=== PATIENT | male | born 1935 | race Caucasian/White ===

== ENCOUNTER 2018-02-17 05:58 | Emergency (ER) | payer MEDICARE, BC ==
[2018-02-17 06:30] LABS: Bilirubin Negative (Negative); Blood, Urine Negative (Negative); Clarity CLEAR (Clear); Glucose, Urine (Dipstick) Negative (Negative); Leukocyte Negative (Negative); Nitrite Negative (Negative); Protein, Urine (Dipstick) Negative (Neg-Trace); Urobilinogen 0.2 mg/dL (0.2-1.0); pH, Urine 7.5 (5.0-9.0)
== END 2018-02-17 08:22 | disposition home or self-care (01) ==
LOC: ERS 05:58
DX: B02.9 Zoster without complications (principal); E11.9 Type 2 diabetes mellitus without complications; Z87.891 Personal history of nicotine dependence; Z79.84 Long term (current) use of oral hypoglycemic drugs; Z79.82 Long term (current) use of aspirin
CPT/HCPCS: 51798; 81003

== ENCOUNTER → 2018-04-14 | Day surgery (SDC) | payer MEDICARE, BC ==
[2018-04-13 10:23] VITALS: BMI 28.1
[2018-04-14 09:03] LABS: #Eosinphils 0.2 thou/uL (0.0-0.7); #Lymphocytes 1.2 thou/uL (1.20-3.40); #Monocytes 0.7 thou/uL (0.11-0.59); #Neutrophils 5.6 thou/uL (1.40-6.50); %Basophils 0.5 % (0.0-1.0); %Eosinophils 3.1 % (0.0-10.0); %Lymphocytes 15.3 % (21.0-51.0); %Neutrophils 72.1 % (42.0-75.0); Hemoglobin 14.7 g/dL (14.0-18.0); Mean Corpuscular HGB CONC 33.8 g/dL (32.0-36.0); Mean Corpuscular Hemoglobin 29.8 pg (27.0-31.0); Mean Corpuscular Volume 88.1 fL (78.0-98.0); Mean Platelet Volume 6.2 fL (7.4-10.4); Platelet Count 326 thou/uL (130-400); RBC Distribution Width 13.5 % (11.5-14.5); Red Blood Cell (RBC) Count 4.92 mill/uL (4.70-6.10); White Blood Cell (WBC) Count 7.8 thou/uL (4.8-10.8)
[2018-04-14 09:05] LABS: INR-International Normal Ratio 1.1; PTT 33.6 SEC (22.9-36.1); Prothrombin Time 14.2 SEC (12.0-14.7)
[2018-04-14 09:53] VITALS: TEMP 97.4
[2018-04-14 14:33] LABS: Hemoglobin 14.7 g/dL (14.0-18.0)
--- NOTE | 2018-04-14 15:35 | CT ---
CT GUIDED BIOPSY OF INTRAABDOMINAL MASS: Date: 04/14/18 HISTORY: 82-year-old history of renal cell carcinoma and prostate cancer, status post left nephrectomy, with m ultiple metastatic masses in the abdominal cavity and lungs demonstrated on CT of 03/25/18 from [facility]. TECHNIQUE: Signed, informed consent obtained. Patient placed supine on CT table. The mass at the lower portion o f the left psoas muscle was targeted. The overlying left lateral lower flank at the level of the left iliac wing was prepared and draped in the usual sterile fashion. A 25 gauge needle was used to apply buffered lidocaine superficially and deeply through the lateral abdominal wall musculature. In tande m with the 25 gauge needle, a 17 gauge introducer needle was advanced under step CT guidance to the l ateral edge of the mass expanding the left psoas muscle. The 25 gauge needle was removed. The stylett e from the introducer needle was removed. An 18 gauge biopsy needle was placed in coaxial fashion thr ough the introducer needle. Biopsy gun was fired, yielding core tissue sample which was smeared on a slide, which was evaluated with Touch Preparation analysis by pathologist. This was repeated with a s econd pass, and the 2nd sample was placed directly into Formalin. Introducer needle was removed. The patient tolerated the procedure well. No immediate complications. Patient was scanned 2.5 hours later . Patient was then discharged home without incident. FINDINGS: Scan immediately prior to the biopsy demonstrates an approximately 6 cm soft tissue density mass expa nding the lower portion of the left psoas muscle, anterior to the left iliacus muscle. The left renal fossa is empty of a kidney. Adrenal masses are also noted. Images obtained during biopsy demonstrate the introducer needle distal tip embedded within the periph eral aspect of the psoas mass. The 2.5 hour post biopsy scan demonstrates no hematoma or any other fr ee fluid in the retroperitoneum or pelvic cavity. The prostate gland is absent. There are multiple loyd rgical clips in the prostate bed and along the internal and external iliac chains. IMPRESSION: Technically successful 18 gauge core biopsy x 2 of the tumor mass in the inferior portion of the left psoas muscle. POS: [facility]
== END ==
LOC: CT 08:41
PROVIDERS: ATTEND Internal Medicine Hematology & Oncology
PROC: 0TB13ZX Excision of Left Kidney, Percutaneous Approach, Diagnostic (ICD-10-PCS; principal; 2018-04-14)
DX: C64.2 Malignant neoplasm of left kidney, except renal pelvis (principal); C61 Malignant neoplasm of prostate; C79.89 Secondary malignant neoplasm of other specified sites; C78.02 Secondary malignant neoplasm of left lung; C78.01 Secondary malignant neoplasm of right lung; E11.9 Type 2 diabetes mellitus without complications; G47.00 Insomnia, unspecified; Z79.84 Long term (current) use of oral hypoglycemic drugs; Z79.899 Other long term (current) drug therapy; Z87.891 Personal history of nicotine dependence
CPT/HCPCS: 36415; 49180; 50200; 77012; 85025; 85610; 85730; 88305; 88333; 99152; 99153

== ENCOUNTER 2018-06-13 07:30 | Inpatient (IN) | payer MEDICARE, BC ==
[2018-06-13 08:02] LABS: #Basophils 0.1 thou/uL (0.0-0.2); #Eosinphils 0.8 thou/uL (0.0-0.7); #Lymphocytes 1.6 thou/uL (1.20-3.40); #Neutrophils 4.2 thou/uL (1.40-6.50); %Basophils 0.7 % (0.0-1.0); %Lymphocytes 21.1 % (21.0-51.0); %Neutrophils 54.2 % (42.0-75.0); Hemoglobin 13.2 g/dL (14.0-18.0); Mean Corpuscular HGB CONC 32.3 g/dL (32.0-36.0); Mean Corpuscular Hemoglobin 28.3 pg (27.0-31.0); Mean Corpuscular Volume 87.6 fL (78.0-98.0); Mean Platelet Volume 6.9 fL (7.4-10.4); Platelet Count 264 thou/uL (130-400); RBC Distribution Width 12.3 % (11.5-14.5); Red Blood Cell (RBC) Count 4.66 mill/uL (4.70-6.10); White Blood Cell (WBC) Count 7.7 thou/uL (4.8-10.8)
[2018-06-13 08:21] LABS: ALT (SGPT) 28 U/L (8-55); AST (SGOT) 30 U/L (5-34); Albumin 3.8 g/dL (3.4-4.8); Alkaline Phosphatase 144 U/L (40-150); Anion Gap 17 mmol/L (10-20); BUN (Urea Nitrogen) 47 mg/dL (8.4-25.7); Bilirubin, Total 0.9 mg/dL (0.2-1.2); Calc. Creatinine Clearance 0 mL/min (70-130); Calcium 11.5 mg/dL (7.8-10.44); Carbon Dioxide 21 mmol/L (23-31); Chloride 108 mmol/L (98-107); Estimated GFR-MDRD 16; Globulin 3.9 g/dL (2.4-3.5); Glucose 104 mg/dL (83-110); Potassium 4.8 mmol/L (3.5-5.1); Protein, Total 7.7 g/dL (5.8-8.1); Sodium 141 mmol/L (136-145)
[2018-06-13 08:25] LABS: CKMB 0.9 ng/mL (0-6.6); Troponin I 0.115 ng/mL (< 0.028)
[2018-06-13 08:39] LABS: Base Excess-Venous -2.3 mmol/L (0 (+/- 2.5)); Bicarbonate (HCO3v) 22.2 mmol/L (1.0-85.0); CO2 Tension (PvCO2) 36.8 mmHg (41.0-51.0); Calcium, Ionized 1.37 mmol/L (1.12-1.32); Hemoglobin - Calc 13.5 g/dL (12.0-18.0); O2 Tension (PvO2) 47.5 mmHg (35.0-45.0); Potassium 5.3 mmol/L (3.4-4.7); T. Carbon Dioxide 23.4 mmol/L (1.0-85.0); pH (Venous) 7.389 (7.35-7.45); vO2 Saturation-calc 82.8 % (94-98)
[2018-06-13] MEDS ORDERED: Fentanyl 100 MCG/2 ML VIAL ONE (09:21)
--- NOTE | 2018-06-13 09:40 | RAD ---
PORTABLE CHEST: HISTORY: Dyspnea, shortness of breath, increased with exertion. History of renal cell carcinoma. COMPARISON: A CT of the abdomen performed 03/25/2018. FINDINGS: Heart size is borderline. There are atherosclerotic changes of the aorta. Bilateral lower lobe pulm onary nodules are demonstrated which were seen on a previous CT study. Chronic-appearing interstitia l lung changes are noted. IMPRESSION: Chronic lung change with bilateral pulmonary nodules which, given the history of rectal cell carcinom a, are very suspicious for metastatic disease. This was noted on a previous CT study. POS: [facility]
[2018-06-13] MEDS ORDERED: Furosemide 40 MG/4 ML VIAL ONE (10:38)
--- NOTE | 2018-06-13 11:02 | CT ---
CT ABDOMEN AND PELVIS WITHOUT CONTRAST: HISTORY: An 83-year-old male with increasing generalized weakness and shortness of breath that is worse with e xertion. No cancer or diabetes. FINDINGS: Comparison is made with the contrast-enhanced exam of 03/24/2018. Interval development of tiny pleura l effusions has occurred. Changes of metastatic disease in the liver, pancreas, adrenal glands, and left psoas are again seen. and are essentially stable. The patient is post left nephrectomy. No ca lculi are seen in the right kidney, right ureter, or the urinary bladder. No right-side hydrouretera l nephrosis is seen. Postop changes of cholecystectomy and left nephrectomy are again seen. Postop changes in the pelvis are again noted. The spleen is enlarged measuring 15.4 cm in length (13 cm on the previous exam). N o osteolytic or osteoblastic lesions are seen. There are degenerative changes in the spine. The col on is predominantly left-sided consistent with bowel malrotation. The small bowel loops are not abno rmally dilated. There are vascular calcifications without evidence of aneurysmal dilatation of the a bdominal aorta. No free air or free fluid is seen in the abdomen or pelvis. IMPRESSION: Interval development of tiny pleural effusions and splenomegaly since 03/25/2018. POS: [facility]
[2018-06-13] MEDS ORDERED: Ondansetron PF 4 MG/2 ML Vial IVP PRN (11:50)
[2018-06-13] MEDS ORDERED: Dextrose 5% in Water 1,000 ML IV PRN (11:54)
[2018-06-13] MEDS ORDERED: Insulin Regular 300 UNITS/3 ML VIAL SC PRN (11:54)
[2018-06-13] MEDS ORDERED: Dextrose 50% Abboject 50 ML SYRINGE SLOW IVP PRN (11:54)
[2018-06-13 12:02] LABS: Troponin I 0.144 ng/mL (< 0.028)
--- NOTE | 2018-06-13 12:33 | HP ---
DATE OF ADMISSION: 06/13/2018 HISTORY OF PRESENT ILLNESS: This is an 83-year-old white male with a history of metastatic left orion r cell carcinoma, status post left nephrectomy, followed by Dr. River, who presents with weakness. The patient was diagnosed with kidney cancer in April of this year and has had 2 rounds of immun otherapy. Since then, he has been becoming progressively weak. Over the past 3 days, he has been dickerson ving more difficulty ambulating and complaining of increasing weakness and decreased appetite. He wa s evaluated in the emergency room and was found to have increasing creatinine and was also noted to h ave small pleural effusions on his chest x-ray with an elevated BNP. PAST MEDICAL HISTORY: Prostate cancer status post prostatectomy in 1994, status post left nephrectom y in 2007. PAST SURGICAL HISTORY: Include 1994 prostatectomy, 2004 cholecystectomy, 2007 left nephrectomy, hist ory of a male sling procedure in 04/14/2018 and a left kidney CT-guided biopsy. SOCIAL HISTORY: He is . He lives with his and 1 daughter. He is a retired postal pili . He has 3 boys and 1 girl. MEDICATIONS: Fish oil daily, folic acid daily, aspirin 81 mg daily, potassium daily, metformin 500 t .i.d., Singulair 10 mg daily, gabapentin 100 t.i.d., tramadol p.r.n., acyclovir b.i.d., [place] p.r.n. FAMILY HISTORY: Positive for heart disease and Parkinson's. REVIEW OF SYSTEMS: As above. ALLERGIES: To CODEINE. OBJECTIVE: VITAL SIGNS: Stable, afebrile at this time. GENERAL: Minimal distress at this time. HEENT: Clear. NECK: Supple. HEART: Regular rate and rhythm. LUNGS: With bilateral rales diffusely. No wheezing or rhonchi. ABDOMEN: Soft, nontender. EXTREMITIES: With no edema. LABORATORY AND X-RAY FINDINGS: White count 7.7, H and H 13 and 40. Sodium 141, potassium 4.8, chlor goran 108, CO2 21, creatinine 3.63, BUN 47. Troponin I 0.115. BNP 824. Chest x-ray with lower lobe p ulmonary nodules, mild pleural effusion. CT abdomen with metastatic lesions of the left kidney. Adr enal mass present as well as pancreatic masses. ASSESSMENT: 1. Weakness. 2. 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 3. Dehydration. 4. History of prostatectomy for prostate cancer in 1994. 5. Diabetes. 6. Hypertension. 7. Hyperlipidemia. PLAN: 1. Consult Dr. River. 2. Gentle diuresis. 3. Consult Dr. Davis for exacerbation of acute kidney injury on chronic kidney disease. 4. Do not resuscitate.
[2018-06-13] MEDS: HYDROcodone/Acetaminophen 10/325 mg Tablet PO PRN ×2 (12:59→19:40)
--- NOTE | 2018-06-13 14:28 | CON ---
DATE OF CONSULTATION: 06/13/2018 REASON FOR CONSULTATION: Left bundle branch block, new onset. HISTORY OF PRESENT ILLNESS: Mr. Travis is an unfortunate 83-year-old gentleman who was recently desiree gnosed with metastatic renal cell cancer. He was given 4 months to live. He was placed on immunothe rapy recently. He proceeded to the emergency room with weakness and fatigue. He also has had lower extremity edema. No chest pain or pressure or shortness of breath noted. PAST MEDICAL HISTORY: As described above including prostate cancer, left nephrectomy and cholecystec anabel. SOCIAL HISTORY: He is currently . No current tobacco or alcohol use. HOME MEDICATION: Include fish oil, Singulair, gabapentin, potassium, tramadol, acyclovir, [place], Opd ivo and Yervoy for renal cell cancer. ALLERGIES: CODEINE. REVIEW OF SYSTEMS: Ten-point review of systems reviewed and as above, otherwise negative. PHYSICAL EXAMINATION: GENERAL: Patient is a pleasant male who is in no acute distress. The patient appears his stated age . VITAL SIGNS: Blood pressure 167/79, pulse 101, temperature 97.9. NEUROLOGIC: The patient is alert and oriented times 3 with no focal neurologic deficits. HEENT: Sclerae without icterus. Mouth has moist mucous membranes with normal pallor. NECK: No JVD. Carotid upstroke brisk. No bruits bilaterally. LUNGS: Clear to auscultation with unlabored respirations. BACK: No scoliosis or kyphosis. CARDIAC: Regular rate and rhythm with normal S1 and S2. No S3 or S4 noted. No significant rubs, mu rmurs, thrills, or gallops noted throughout the precordium. PMI is not displaced. There is no césar ternal heave. ABDOMEN: Soft, nontender, nondistended. No peritoneal signs present. No hepatosplenomegaly. No ab normal striae. EXTREMITIES: 2+ femoral and 2+ dorsalis pedis pulses. No cyanosis, clubbing, or edema. SKIN: No gross abnormalities. PERTINENT LABS: Hemoglobin 13.2, hematocrit 40.9. BNP of 824. Troponin 0.115. EKG shows left bundle branch block. IMPRESSION: 1. New onset left bundle branch block. 2. Metastatic renal cell cancer. RECOMMENDATIONS: Mr. Travis's overall LVEF may certainly be related to a recent new immunotherapy. There is evidence suggesting cardiotoxicity. He has expressed lower extremity edema as well. We wo uld recommend echo with Doppler. At this point, if LVEF is diminished, he likely would benefit from further treatment with this drug combination. His BNP is elevated, which does suggest cardiomyopathy . Family certainly understands the situation. No further recommendations.
[2018-06-13 14:52] LABS: Troponin I 0.122 ng/mL (< 0.028)
[2018-06-13] MEDS: Sodium Chloride 0.9% 1,000 ML IV SCH (18:32)
[2018-06-13 19:04] LABS: Bilirubin Negative (Negative); Blood, Urine Negative (Negative); Clarity CLEAR (Clear); Glucose, Urine (Dipstick) Negative (Negative); Leukocyte Negative (Negative); Nitrite Negative (Negative); Protein, Urine (Dipstick) Negative (Neg-Trace); Specific Gravity, Urine 1.008 (1.002-1.036); Urobilinogen 0.2 mg/dL (0.2-1.0); pH, Urine 5.5 (5.0-9.0)
[2018-06-13 19:07] LABS: Bacteria/HPF None Seen HPF (None Seen); Hyaline Casts/LPF 0-3 HYALINE CAST LPF (0-3 Hyaline); Pathc Cast-AUWi Flag 0.14 (0-2.49); RBC/HPF 0-3 HPF (0-3); Squamous Epithelial None Seen HPF (0-3); WBC/HPF 0-3 HPF (0-3)
[2018-06-13 19:34] LABS: Creatinine, Urine 33.01 mg/dL (63-166)
[2018-06-13] MEDS: Famotidine 20 MG TAB PO SCH (20:44)
--- NOTE | 2018-06-13 22:41 | CON ---
DATE OF CONSULTATION: 06/13/2018 HISTORY OF PRESENT ILLNESS: Mr. Travis is an 83-year-old white male with known history of renal can cer - metastatic, prostate cancer - remission, and being followed up by Dr. River and has received 2 courses of immunotherapy. According to the patient, he has received Opdivo and Yervoy. We are keyur ng consulted for the acute kidney injury on top of his chronic renal failure. Of interest, this sung ent has been having decreased motor strength, decreased appetite, decreased energy level. He denies any overt shortness of breath or chest pain. REVIEW OF SYSTEMS: Positive for generalized malaise. No nausea, no vomiting, no urinary frequency, no abdominal pain. Decreased energy level. Decreased appetite. No fever or chills. No hematochezi a, no melena, no hematemesis. No syncopal episode. No productive cough. No fever or chills. MEDICATIONS: The patient is currently on Lovenox 30 mg subcu daily, Pepcid 20 mg p.o. daily, glucago n p.r.n., Humulin R sliding scale. PAST MEDICAL HISTORY: 1. History of prostate cancer, history of renal cancer - currently with metastatic lesions. 2. Type 2 diabetes mellitus. 3. Hypothyroidism. PAST SURGICAL HISTORY: 1. Status post prostate biopsy. 2. Status post prostatectomy. 3. Status post left nephrectomy for renal cancer. 4. Status post cholecystectomy. 5. Status post midline abdominal hernia repair. 6. The patient has ? of penile prosthesis ? placement. SOCIAL HISTORY: The patient is , 4 children. He is a retired mailman. Has worked with [employer] years ago. He is retired. He also has been in the [employer] service. Smoked cigars for 5 years, one half cigar a day. He has some college courses. No alcohol, no IV drug abuse. He is a Jehovah' s Witness. ALLERGIES: CODEINE. TRAUMA: None. IMMUNIZATIONS: Up-to-date. HOSPITALIZATIONS: Please see past medical history. FAMILY HISTORY: No family history of ESRD. PHYSICAL EXAMINATION: VITAL SIGNS: Blood pressure is noted to be 167/79, heart rate 101, respiratory rate 18, temperature 97.7, O2 sat 93% on room air. GENERAL: Noted to be awake, supine, comfortable, obese, not in distress. SKIN: Decreased turgor. HEENT: He has pinkish conjunctivae, anicteric sclerae. NECK: No neck mass, no carotid bruits, no JVD. CHEST: No deformities. LUNGS: Decreased breath sounds. No wheezing, no crackles. HEART: Normal sinus rhythm. No murmur, no gallops, no rubs. ABDOMEN: Globular, soft, nontender. No masses. GENITOURINARY: Positive for scrotal edema. EXTREMITIES: No edema, no deformities. NEUROLOGIC: Awake, oriented to 3 spheres. Moving all extremities. No tremors, no asterixis. IMAGING: Chest x-ray of 06/13/2018 showed chronic lung change with bilateral pulmonary nodules - ewa picious for metastatic lesion from renal cancer. 06/13/2018 CT scan of the abdomen and pelvis shows interval development of tiny pleural effusions and splenomegaly - this was noted also on 03/25/2018. There are changes suggestive of left nephrectomy. No renal obstruction is said to have been noted. LABORATORY DATA: On 06/13/2018, white count 7.7, hemoglobin 13.2, hematocrit 40.9. Sodium 140, pota ssium 5.3, chloride 111. Troponin I is 0.122. BNP is 824. On 06/13/2018, BUN 47 and creatinine 3.63. On 05/25/2018, creatinine was 2.24. On 05/19/2018, creatinine was 2.27. On 12/31/2017, creatinine w as noted at 1.92. On 07/03/2015, creatinine was 1.38. ASSESSMENT AND PLAN: 1. Acute kidney injury on top of his chronic renal failure, consider superimposed prerenal azotemia with a history of decreased p.o. intake and weight loss. We will be reviewing a urinalysis. I could not rule out the possibility of the side effects of his Opdivo causing a possible interstitial nephr itis. We will be reviewing a urinalysis with this patient. In addition, urine chemistries will also be done. There is no indication for any dialytic intervention. I would probably start this patient on gentle volume repletion, normal saline at 100 mL per hour. 2. Inability to pass a South catheter - consider a Urology consult tomorrow. 3. Metastatic renal cancer - currently on Yervoy and Opdivo - he has received 2 courses of the said medication. Consider consulting Dr. River, his oncologist. Please note that this patient is a Jeh ovah's Witness and he will not be taking any blood transfusion. I did discuss about plasma albumin a nd he has agreed to take this if needed. Overall, I agree with current management.
[2018-06-14] MEDS: HYDROcodone/Acetaminophen 10/325 mg Tablet PO PRN (03:07)
[2018-06-14 05:01] LABS: #Lymphocytes 1.5 thou/uL (1.20-3.40); #Monocytes 0.9 thou/uL (0.11-0.59); %Basophils 0.3 % (0.0-1.0); %Eosinophils 11.8 % (0.0-10.0); %Lymphocytes 17.7 % (21.0-51.0); %Monocytes 10.2 % (0.0-10.0); %Neutrophils 59.9 % (42.0-75.0); Hemoglobin 12.6 g/dL (14.0-18.0); Mean Corpuscular HGB CONC 32.6 g/dL (32.0-36.0); Mean Corpuscular Hemoglobin 28.3 pg (27.0-31.0); Mean Platelet Volume 6.8 fL (7.4-10.4); Platelet Count 267 thou/uL (130-400); RBC Distribution Width 12.2 % (11.5-14.5); Red Blood Cell (RBC) Count 4.45 mill/uL (4.70-6.10); White Blood Cell (WBC) Count 8.3 thou/uL (4.8-10.8)
[2018-06-14] MEDS: Sodium Chloride 0.9% 1,000 ML IV SCH ×2 (05:08→13:59)
[2018-06-14 05:19] LABS: Anion Gap 12 mmol/L (10-20); BUN (Urea Nitrogen) 45 mg/dL (8.4-25.7); Calc. Creatinine Clearance 18 mL/min (70-130); Calcium 10.7 mg/dL (7.8-10.44); Carbon Dioxide 23 mmol/L (23-31); Chloride 108 mmol/L (98-107); Estimated GFR-MDRD 16; Glucose 97 mg/dL (83-110); Potassium 4.4 mmol/L (3.5-5.1); Sodium 139 mmol/L (136-145)
[2018-06-14] MEDS: Enoxaparin Sodium 30 MG/0.3 ML SYRINGE SC SCH (08:12)
--- NOTE | 2018-06-14 09:07 | PRG ---
DATE OF SERVICE: 06/14/2018 SUBJECTIVE: Mr. Travis is an 83-year-old white male with known history of renal cancer with metasta sis to the lungs. He was admitted for generalized malaise and weakness. He was noted also to have w orsening renal dysfunction. I did review the chest x-ray yesterday and the chest x-ray showed possib le metastatic lesions with chronic lung changes. He has bilateral pulmonary nodules. There is no ev idence of CHF seen. He still got confused this morning. Occasional short of breath, but oxygenating adequately. He is c urrently on gentle volume repletion with improving renal function. OBJECTIVE: VITAL SIGNS: Blood pressure 160/70, heart rate is 100, respiratory rate 16, temperature 97.8, pulse ox 100% on 2 liters. GENERAL: Patient is awake, supine, comfortable, not in overt distress. SKIN: Adequate turgor. HEENT: He has pinkish conjunctivae, anicteric sclerae. NECK: No neck mass, no carotid bruits, no JVD. CHEST: No deformities. LUNGS: Decreased breath sounds. HEART: Normal sinus rhythm. No murmur, no gallops, no rubs. ABDOMEN: Globular, soft, nontender, no masses. EXTREMITIES: No edema, no deformities. MEDICATIONS: 06/14/2018 - Reviewed. LABORATORY DATA: 06/14/2018 - White count 8.3, hemoglobin 12.6, hematocrit 38.7. Sodium 139, potass ium 4.4, chloride 108, carbon dioxide 23, BUN 45, creatinine 3.57, GFR 16 mL per minute. Calcium is 10.7. ASSESSMENT AND PLAN: 1. Chronic renal failure/acute kidney injury - most likely a superimposed hemodynamically mediated r enal dysfunction. I did review the urine sediment on 06/13/2018, it is relatively benign. The other possibility for the worsening renal dysfunction is secondary to Opdivo. However, urine sediment is benign, making prerenal, most likely. Continue gentle volume repletion with this patient - he is cur rently on normal saline 100 mL per hour. 2. Hypercalcemia - most likely secondary to the metastatic renal lesion. Slowly improving with volu me repletion. 3. Renal cancer with mets - previously received Yervoy and Opdivo - 2 rounds were given by his oncol ogist. Consider reconsulting Oncology, Dr. Gilbert's. We will check base met and CBC in a.m.
--- NOTE | 2018-06-14 12:57 | PRG ---
DATE OF SERVICE: 06/14/2018 SUBJECTIVE: Mr. Travis is stable. He has no complaints at this time. PHYSICAL EXAMINATION: VITAL SIGNS: His blood pressure 163/70, O2 sats 100% on 2 liters, temperature 97.8. LUNGS: Clear. HEART: Reveals no murmur. ABDOMEN: Soft. Bowel sounds are present and active. LABORATORY DATA: Hemoglobin 12.6, hematocrit 38.7, creatinine is 3.57. IMPRESSION: 1. Dehydration. 2. Renal cell carcinoma. 3. Acute renal injury. PLAN: The patient will be maintained on his current treatment course. We will await input from Dr. River for further treatment recommendations. Possibly need to entertain the hospice consult.
--- NOTE | 2018-06-14 13:04 | CON ---
DATE OF CONSULTATION: 06/14/2018 HISTORY OF PRESENT ILLNESS: This is an 83-year-old white male who was admitted I think yesterday wit h weakness and fatigue. I do not think he is able to ambulate well anymore. His underlying history though is one of renal cell carcinoma. Over 10 years ago, he had a left nephrectomy done in [facility] and had been doing fine from this until a few months ago, maybe a couple to 3 months ago, when he started developing some left-sided pain in his back and flank and abdomen and I think either MRI or C AT scan done at that time showed a mass in the left renal bed and biopsy showed it to be clear cell r enal cell carcinoma. It appears to also be involving I think the pancreas and the spleen. He has be en seeing Dr. River and I think he has been on immunotherapy for a month or two now. He came in no w with elevated creatinine. His creatinine I think is running around 2 and it was up in the 3 range. He had a noncontrast CAT scan done that shows a solitary right kidney without stone or hydronephros is. His bladder was not significantly distended. Now the reason I have been asked to see him is rel ated to inability to pass a South catheter. On talking with the family member and a friend, who is a health care provider, apparently 2 attempts were made to pass a South catheter and both were unsucce ssful, both meeting resistance. He has been making urine and has been incontinent of urine since his radical prostatectomy in 1994. His PSA has apparently been undetectable since that time, so he has been cured of his prostate cancer, but he is left with incontinence and over the last couple of month s as he developed problems with recurrent renal cell cancer, his incontinence has worsened and right now, he is wearing a diaper. Before that, he was wearing multiple pads throughout the day and night. He is currently not in retention. He is wetting his diapers and he currently does not feel like he has to urinate and is unable to and as mentioned, a CAT scan done did not show a distended bladder o r hydronephrosis. PAST MEDICAL HISTORY: He has other medical conditions. He has got the chronic renal insufficiency. Dr. Davis is seeing him related to that. Diabetes. PAST SURGICAL HISTORY: He has had either a male sling procedure or an artificial urinary sphincter d one. I do not think the time on that was 2017. I think that was done probably some time ago. MEDICATIONS: Include aspirin, metformin, Singulair, gabapentin, tramadol, [place]. PHYSICAL EXAMINATION: His bladder is not distended. He is not circumcised. There is no blood at th e meatus. There is no bruising along the perineum. He has a large left hydrocele that he has had fo r years and is probably related to his prostate surgery and the lymph node dissection. Right testicl e is normal. I did not do a rectal exam on him. 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 Because the patient is not in retention, because he is making urine and because his bladder is not di stended and he does not have hydronephrosis, then I would doubt very much that he has anything to sug gest a postobstructive cause for his elevated creatinine and also I would not strongly recommend we t ry to place a South catheter or suprapubic tube at this time. The South catheter requiring anestheti c to do so and the suprapubic tube really only put him at risk for problems developing with infection of the urinary tract. I think if he develops complete retention or distended bladder or anything to suggest that his bladder outlet obstruction is causing his deterioration in his renal function, then we could readdress either a surgery to place a urethral catheter or a suprapubic tube. This was dis cussed with the patient and with his daughter. All questions were answered.
--- NOTE | 2018-06-14 13:44 | PDOC.CTH ---
Cardiology Progress Note - Subjective Feels better today. Less LE edma present - Objective Vital Signs Temp Pulse Resp BP Pulse Ox 06/14/18 07:07 97.8 F 100 16 163/70 H 100 06/14/18 03:32 98.7 F 101 H 12 152/72 H 92 L Weight 177 lb 6.4 oz 06/13/18 06/14/18 06/15/18 06:59 06:59 06:59 Intake Total 1380 Balance 1380 - Physical Examination General/Neuro: alert & oriented x3, NAD Neck: carotid US brisk, no JVD present Lungs: unlabored respirations Heart: RRR Abdomen: NT/ND, soft Extremities: + femoral B - Labs Result Diagrams: 06/14/18 04:38 06/14/18 04:38 Troponin/CKMB CK-MB (CK-2) 0.9 ng/mL (0-6.6) 06/13/18 07:50 Troponin I 0.122 ng/mL (< 0.028) H 06/13/18 14:17 - Assessment/Plan Cardiomyopathy of unknown etiology New onset LBBB EF on recent echo 30-35%. Add coreg Avoid ACEI and ARB secondary to RI Add hydralazine, imdur Spoke iwth Dr. River Immunotherapy will be stopped for now Prognosis per pt and family of 4 months. Not a candidate for lifevest or ICD
[2018-06-14] MEDS: Lorazepam 0.5 MG TAB PO PRN ×2 (13:56→20:47)
[2018-06-14] MEDS: hydrALAZINE 10 MG TAB PO SCH ×2 (13:56→20:46)
[2018-06-14] MEDS ORDERED: hydrALAZINE 25 MG TAB PO SCH (15:00)
[2018-06-14] MEDS: hydrOXYzine 25 MG TAB PO PRN ×2 (17:07→23:30)
[2018-06-14] MEDS: Famotidine 20 MG TAB PO SCH (20:47)
[2018-06-14] MEDS ORDERED: Carvedilol 3.125 MG TAB PO SCH (21:00)
[2018-06-14] MEDS ORDERED: Carvedilol 6.25 MG TAB PO SCH (21:00)
--- NOTE | 2018-06-14 22:56 | CON ---
DATE OF CONSULTATION: 06/14/2018 REASON FOR CONSULTATION: Failure to thrive with a history of metastatic renal cell carcinoma. 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 There is also intermittent PND. Of significance, the patient has a history of clear cell carcinoma of the kidney for which he underwent a left radical nephrectomy in 07/2006. The surgery wa s performed in [place], [place]. Earlier this year, he developed right lower extremity radicular pa in and a 15-pound weight loss associated with progressive decline in functional status. Imaging then showed left psoas mass and bilateral pulmonary nodules in addition to several pancreatic masses, a 2 .4 cm adrenal mass, and a 7.8 cm left hepatic lobe mass. The left psoas mass was 5.8 cm. A biopsy o f the liver confirmed metastatic clear cell carcinoma. The patient was started on dual immunotherapy consisting of Opdivo and Yervoy and has completed 2 cycles of therapy. As mentioned, on admission sam castro was complaining primarily of weakness and some dyspnea. I am asked to see the patient to provide f urther management and recommendations regarding the metastatic malignancy and subsequent symptoms req uiring hospitalization. ALLERGIES: He describes sensitivity to CODEINE. MEDICATIONS: Tramadol, levothyroxine, and metformin. MEDICAL ILLNESS: There is a history of type 2 diabetes mellitus. He has a history of polio in 1949, diagnosis of prostate cancer was made in 1992 with unknown treatment, details unavailable. PAST SURGICAL HISTORY: Patient underwent prostatectomy in 1992, a male sling procedure for urinary i ncontinence in 1983, cholecystectomy in 2004, the nephrectomy as mentioned in 2005. FAMILY HISTORY: There is a history of heart disease and Parkinson's disease. His mother of marcell g cancer. SOCIAL HISTORY: The patient is and has 4 children. The patient lives with his spouse and [facility]. He is a former smoker in the remote past. He drinks rarely. 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 REVIEW OF SYSTEMS: See history of present illness. Otherwise, he denies significant cardiopulmonary , GI, , musculoskeletal, or neurological complaints. PHYSICAL EXAMINATION: VITAL SIGNS: Temperature 97.8, pulse 100 and regular, respirations 16, blood pressure 163/70. GENERAL: The patient is a chronically ill appearing man in no acute distress. He is alert, oriented , and cooperative. HEENT: The extraocular movements are intact and the pupils equal, round, and reactive to light. NECK: Supple. LUNGS: There are some bibasilar rales posteriorly. CARDIOVASCULAR: There is a S3 gallop rhythm at the apex without murmur or rub. ABDOMEN: No tenderness, organomegaly, masses, bruits or ascites. EXTREMITIES: No clubbing, cyanosis. There is trace to 1+ edema present. SKIN: Normal. LYMPH: No adenopathy. MUSCULOSKELETAL: No active arthritis. NEUROLOGIC: No overall focal findings and the cranial nerves II-XII are grossly intact. LABORATORY DATA: White blood cell count 8.3, hemoglobin 12.6, and platelet count 267,000. White blo od cell differential was essentially normal. Electrolytes were normal except for borderline chloride of 108. The creatinine is elevated at 3.57. Normally running just under 3. BUN is 45. Calcium is 10.7 and albumin 3.8. BNP is 824. IMAGING DATA: Chest x-ray shows bilateral pulmonary nodules with small pleural effusions. There was no significant change compared to prior imaging. CT scan of the abdomen and pelvis confirmed prior evidence of malignancy. There was some increase in spleen size with spleen measuring 15.4 cm. There had been interval development compared to prior imaging of tiny pleural effusions. An echocardiogra m has shown an LVEF of about 35%. IMPRESSION: 1. Metastatic renal cell carcinoma. 2. Congestive heart failure with decreased left ventricular ejection fraction. 3. Renal insufficiency, acute on chronic. 4. Declining performance status. RECOMMENDATIONS: I discussed the findings at length with Dr. Don, Dr. Hemphill, and Dr. York. While I am not certain that the immunotherapy is directly accountable for the congestive heart failur e, we will hold therapy for now and treat the congestive failure. Hopefully, the renal function will improve. While interstitial nephritis can be a complication of immunotherapy, the findings may also be secondary to volume issues and a decline in cardiac output. Hopefully, with improvement in cardi ac function and holding of immunotherapy, his overall functional status may improve and subsequent ma nagement decisions will then be made regarding further treatment of the malignancy. Thanks very much for allowing me to provide my recommendations.
[2018-06-15] MEDS: Sodium Chloride 0.9% 1,000 ML IV SCH (02:22)
[2018-06-15] MEDS: Lorazepam 0.5 MG TAB PO PRN ×2 (02:56→23:49)
[2018-06-15 05:24] LABS: #Eosinphils 0.9 thou/uL (0.0-0.7); #Lymphocytes 1.6 thou/uL (1.20-3.40); #Neutrophils 5.8 thou/uL (1.40-6.50); %Basophils 0.4 % (0.0-1.0); %Eosinophils 9.3 % (0.0-10.0); %Monocytes 10.9 % (0.0-10.0); %Neutrophils 62.4 % (42.0-75.0); Hemoglobin 13.4 g/dL (14.0-18.0); Mean Corpuscular Hemoglobin 28.2 pg (27.0-31.0); Mean Corpuscular Volume 87.9 fL (78.0-98.0); Mean Platelet Volume 6.9 fL (7.4-10.4); Platelet Count 293 thou/uL (130-400); RBC Distribution Width 12.4 % (11.5-14.5); Red Blood Cell (RBC) Count 4.76 mill/uL (4.70-6.10); White Blood Cell (WBC) Count 9.2 thou/uL (4.8-10.8)
[2018-06-15 05:32] LABS: Anion Gap 15 mmol/L (10-20); BUN (Urea Nitrogen) 39 mg/dL (8.4-25.7); Calc. Creatinine Clearance 20 mL/min (70-130); Calcium 10.8 mg/dL (7.8-10.44); Carbon Dioxide 17 mmol/L (23-31); Chloride 106 mmol/L (98-107); Estimated GFR-MDRD 20; Glucose 99 mg/dL (83-110); Potassium 4.3 mmol/L (3.5-5.1); Sodium 134 mmol/L (136-145)
[2018-06-15] MEDS: Levothyroxine Sodium 100 MCG TAB PO SCH (05:36)
[2018-06-15] MEDS ORDERED: Lorazepam 2 MG/ML VIAL SLOW IVP PRN (07:30)
--- NOTE | 2018-06-15 07:41 | PRG ---
DATE OF SERVICE: 06/15/2018 Mr. Travis a little bit agitated this morning. He appears to be a little bit more disoriented than I normally see him. He appears to be restless. PHYSICAL EXAMINATION: VITAL SIGNS: Temperature 97.4, BP 164/80, O2 sat 98% on room air. LUNGS: Reveal bilateral breath sounds. HEART: Reveals a regular rate and rhythm without murmurs, gallops or rubs. LABORATORY: Hemoglobin 13.4, hematocrit 31.8. Sodium 134, potassium 4.3, chloride 106, CO2 17, BUN 39, creatinine 3.07. Blood cultures are negative thus far. IMPRESSION: 1. Renal cell cancer metastatic. 2. Acute renal injury. PLAN: 1. The patient appears to be more agitated. We will try to increase his Ativan a little bit more to day. 2. I have spoken with the daughter extensively who has medical power of assistant district attorney. I do feel like th at perhaps hospice consult with be appropriate for Mr. Travis. She states that she no longer wishes her father did suffer and that she wishes he would be cared for by hospice if it could be arranged. We will get this going at this time.
--- NOTE | 2018-06-15 08:50 | PDOC.CTH ---
Cardiology Progress Note - Subjective Pt woith confusion overnight requiring a sitter. - Objective Vital Signs Temp Pulse Resp BP BP Pulse Ox 06/15/18 08:00 97.3 F L 107 H 22 H 174/84 H 94 L 06/15/18 04:00 97.4 F L 99 22 H 164/80 H 98 06/15/18 01:05 98 06/15/18 00:00 98.9 F 107 H 24 H 152/72 H 93 L Weight 182 lb 3.2 oz 06/14/18 06/15/18 06/16/18 06:59 06:59 06:59 Intake Total 1380 3100 Output Total 125 Balance 1380 2975 - Physical Examination General/Neuro: NAD Neck: no JVD present Lungs: CTA, unlabored respirations Heart: PMI normal, RRR Abdomen: NT/ND, soft Extremities: + femoral B - Telemetry Telemetry Rhythm: SR - Labs Result Diagrams: 06/15/18 04:48 06/15/18 04:48 Troponin/CKMB CK-MB (CK-2) 0.9 ng/mL (0-6.6) 06/13/18 07:50 Troponin I 0.122 ng/mL (< 0.028) H 06/13/18 14:17 - Assessment/Plan New onset CHF LBBB Metastatic renal cell cnacer Family has opted for hospice. Certainly reasonable Changes in meds were made. Changes made for palliation No further recommendations Ok to transfer to medical if anticipating longer stay
--- NOTE | 2018-06-15 08:59 | PRG ---
DATE OF SERVICE: 06/15/2018 SUBJECTIVE: Mr. Travis is an 83-year-old white male who was admitted for generalized malaise, histo ry of metastatic renal cancer and we are seeing him for his acute kidney injury on top of his chronic renal failure. At that time, I felt that he had a hemodynamically mediated renal dysfunction. Empi shauna volume repletion was given with improvement of the renal function. The patient was also seen by Oncology. He has been receiving immune therapy. The urine sediment was relatively benign, making an acute interstitial nephritis less likely from the side effect of the immunotherapy. He has also been noted to be in some degree of CHF. His ejection fraction was noted to be at 30-35%. His IV fluid is currently on hold. PHYSICAL EXAMINATION: VITAL SIGNS: Blood pressure is currently noted at 164/80, heart rate 99, respiratory rate 22, temper ature 97.4. GENERAL: Noted to be awake, alert, comfortable, not in overt distress. SKIN: Adequate turgor. HEENT: He has pinkish conjunctivae, anicteric sclerae. NECK: No neck mass, no carotid bruits, no JVD. CHEST: No deformities. LUNGS: Decreased breath sounds. HEART: Normal sinus rhythm. No murmur, no gallops, no rubs. ABDOMEN: Globular, soft, nontender, no masses. EXTREMITIES: No edema, no deformities. MEDICATIONS: 06/15/2018 - Reviewed. LABORATORY DATA: 06/15/2018 - White count 9.2, hemoglobin 13.4. Sodium 134, potassium 4.3, chloride 106, carbon dioxide 17, BUN 39, creatinine 3.07, glucose 99, calcium is 10.8. ASSESSMENT AND PLAN: 1. Acute kidney injury - secondary to a hemodynamically mediated renal dysfunction. Empiric volume repletion was initially started a couple days ago with improvement of the renal function. However, c ardiac echo showed a decreased ejection fraction, for that reason, IV fluid is on Hep-Lock. 2. Metastatic renal cancer. Continue supportive care. Previously on immunotherapy and followed by Dr. Fuentes. 3. Mental status change. The patient has fluctuating sensorium. At times, he is coherent and at ti mes he becomes restless and is incoherent. Continue to observe. This may be an underlying metabolic encephalopathy. If this remains unimproved, we may need to consider a CT scan of the head to rule o ut any metastatic lesion. Overall I agree with current management.
[2018-06-15] MEDS: hydrALAZINE 25 MG TAB PO SCH ×3 (11:01→20:50)
[2018-06-15] MEDS: Carvedilol 6.25 MG TAB PO SCH ×2 (11:03→20:50)
[2018-06-15] MEDS: Enoxaparin Sodium 30 MG/0.3 ML SYRINGE SC SCH (11:05)
--- NOTE | 2018-06-15 12:00 | PQF ---
CLINICAL DOCUMENTATION IMPROVEMENT CLARIFICATION FORM: ICD-10 Updated PLEASE DO AN ADDENDUM TO THE PROGRESS NOTE WITH ANY DOCUMENTATION UPDATES OR ADDITIONS AND CARRY THROUGH TO DC SUMMARY. THANK YOU. DATE: 06/15/18; 06/16/18 ATTN: Dr. Hang Hemphill Please exercise your independent, professional judgment in responding to the clarification form. Clinical indicators are provided on the bottom of this form for your review Please check appropriate box(s): HEART FAILURE: A. TYPE: [ ] Systolic / HFrEF [ ] Diastolic / HFpEF [ ] Combined Systolic / Diastolic B. ACUITY [ ] Acute [ ] Acute on Chronic [ ] Chronic [ ] Other diagnosis [ ] Unable to determine In addition, please specify: Present on Admission (POA): [ ] Yes [ ] No [ ] Unable to determine For continuity of documentation, please document condition throughout progress notes and discharge summary. Thank You. CLINICAL INDICATORS - SIGNS / SYMPTOMS / LABS CARDIOLOGY PN 06/15: NEW ONSET CHF. ONCOLOGY CONSULT 06/14: BNP 824 ECHOCARDIOGRAM HAS SHOWN AN LVEF OF ABOUT 35% CONGESTIVE HEART FAILURE W/ DECREASED L VENTRICULAR EF. RISKS: CARDIOLOGY PN 06/14: CARDIOMYOPATHY OF UNKNOWN ETIOLOGY. NEW ONSET LBBB. RENAL PN 06/14: CHRONIC RENAL FAILURE/ JOSE. RENAL CANCER WITH METS. TREATMENT: CARDIOLOGY PN 06/14: ADD COREG. ADD HYDRALAZINE, IMDUR. Thank you, Miguelina (This form is maintained as a part of the permanent medical record) 2014 [employer]. All Rights Reserved Miguelina Vivar RN, BSN [email or web address] Office: [phone] [facility]
[2018-06-15] MEDS: HYDROcodone/Acetaminophen 10/325 mg Tablet PO PRN (14:50)
[2018-06-15] MEDS: Famotidine 20 MG TAB PO SCH (20:51)
[2018-06-16 04:59] LABS: #Basophils 0.1 thou/uL (0.0-0.2); #Lymphocytes 1.6 thou/uL (1.20-3.40); #Monocytes 0.9 thou/uL (0.11-0.59); #Neutrophils 5.8 thou/uL (1.40-6.50); %Basophils 0.8 % (0.0-1.0); %Eosinophils 10.1 % (0.0-10.0); %Lymphocytes 17.4 % (21.0-51.0); %Monocytes 9.6 % (0.0-10.0); %Neutrophils 62.1 % (42.0-75.0); Hemoglobin 13.1 g/dL (14.0-18.0); Mean Corpuscular HGB CONC 31.5 g/dL (32.0-36.0); Mean Corpuscular Hemoglobin 27.2 pg (27.0-31.0); Mean Corpuscular Volume 86.4 fL (78.0-98.0); Mean Platelet Volume 6.9 fL (7.4-10.4); Platelet Count 316 thou/uL (130-400); RBC Distribution Width 12.4 % (11.5-14.5); Red Blood Cell (RBC) Count 4.82 mill/uL (4.70-6.10); White Blood Cell (WBC) Count 9.4 thou/uL (4.8-10.8)
[2018-06-16] MEDS: Levothyroxine Sodium 100 MCG TAB PO SCH (05:58)
[2018-06-16 06:00] VITALS: BMI 24.5
[2018-06-16 06:19] LABS: Chloride 106 mmol/L (98-107); Potassium 4.1 mmol/L (3.5-5.1); Sodium 136 mmol/L (136-145)
[2018-06-16 06:20] LABS: Calcium 10.8 mg/dL (7.8-10.44); Glucose 109 mg/dL (83-110)
[2018-06-16 06:21] LABS: Anion Gap 15 mmol/L (10-20); Carbon Dioxide 19 mmol/L (23-31)
[2018-06-16 06:23] LABS: Calc. Creatinine Clearance 21 mL/min (70-130); Estimated GFR-MDRD 20
[2018-06-16 06:24] LABS: BUN (Urea Nitrogen) 42 mg/dL (8.4-25.7)
[2018-06-16 07:24] VITALS: TEMP 97.8
--- NOTE | 2018-06-16 07:58 | PRG ---
DATE OF SERVICE: 06/16/2018 Mr. Travis is doing well today. He is ready to go home. He has been accepted to hospice and he ful ly understands the ramifications going home to hospice. Otherwise, he has no other medical complaint s. OBJECTIVE: VITAL SIGNS: Temperature is 97.8, BP 165/70, O2 sat 93% on nasal cannula. LUNGS: Clear. HEART: Reveals no murmurs. ABDOMEN: Soft, nontender, bowel sounds present and active. IMPRESSION: 1. Metastatic renal cell carcinoma. 2. Acute renal injury. PLAN: The patient will be discharged to hospice today per his family request as well at his request.
[2018-06-16 08:21] VITALS: BP 131/67
[2018-06-16] MEDS: hydrALAZINE 25 MG TAB PO SCH (08:21)
[2018-06-16] MEDS: Carvedilol 6.25 MG TAB PO SCH (08:21)
[2018-06-16] MEDS: Enoxaparin Sodium 30 MG/0.3 ML SYRINGE SC SCH (08:23)
--- NOTE | 2018-06-16 10:11 | DIS ---
DISCHARGE DIAGNOSES: 1. Metastatic renal cell carcinoma. 2. Acute renal injury. 3. Slight congestive heart failure. ADMITTING PHYSICIAN: Dr. Hang Hemphill. CONSULTING PHYSICIAN: Dr. York and Dr. River [facility] SUMMARY: The patient is an 83-year-old male who was admitted on 06/13/2018 with progressive weakness, was found to be in acute renal injury, probably due to INCOMPLETE DICTATION
== END 2018-06-16 11:59 | disposition hospice, home (50) | DRG 682 ==
LOC: ERS 07:30 → 2NO 10:14 → T4-B 06-15 16:13
PROVIDERS: ADMIT Family Medicine; ATTEND Family Medicine
DX: N17.9 Acute kidney failure, unspecified (principal); G93.41 Metabolic encephalopathy; I42.9 Cardiomyopathy, unspecified; C78.00 Secondary malignant neoplasm of unspecified lung; C79.89 Secondary malignant neoplasm of other specified sites; I13.0 Hypertensive heart and chronic kidney disease with heart failure and stage 1 through stage 4 chronic kidney disease, or unspecified chronic kidney disease; E86.0 Dehydration; I44.7 Left bundle-branch block, unspecified; E11.22 Type 2 diabetes mellitus with diabetic chronic kidney disease; N18.9 Chronic kidney disease, unspecified; I50.9 Heart failure, unspecified; Z90.5 Acquired absence of kidney; Z66 Do not resuscitate; R62.7 Adult failure to thrive; R32 Unspecified urinary incontinence; E78.5 Hyperlipidemia, unspecified; E83.52 Hypercalcemia; Z51.5 Encounter for palliative care; N35.819 Other urethral stricture, male, unspecified site; E03.9 Hypothyroidism, unspecified; Z85.46 Personal history of malignant neoplasm of prostate; Z90.79 Acquired absence of other genital organ(s); Z85.528 Personal history of other malignant neoplasm of kidney; Z86.12 Personal history of poliomyelitis; Z87.891 Personal history of nicotine dependence; Z79.84 Long term (current) use of oral hypoglycemic drugs; Z79.82 Long term (current) use of aspirin; Z79.899 Other long term (current) drug therapy
CPT/HCPCS: 36415; 36416; 71045; 74176; 80048; 80053; 81001; 82330; 82553; 82570; 82803; 83605; 83880; 84300; 84484; 85025; 87040; 93005; 93306; 96374; 96375; J1650; J1940; J3010